=== PATIENT | female | born 1990 | race Caucasian/White ===

== ENCOUNTER → 2022-03-22 16:47 | Outpatient (REF) | payer OTHER, SELFPAY ==
--- NOTE | 2022-03-22 16:57 | CA_ITS ---
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 The calculated ejection fraction is 58% by biplane method. - No obvious valvular pathology seen on this study. Findings Left Ventricle Normal left ventricular cavity size. There is normal left ventricular wall thickness. The left ventricular systolic function is normal. The calculated ejection fraction is 58% by biplane method. There is no evidence of regional wall motion abnormalities. Diastolic function is normal for age. Right Ventricle Normal right ventricular cavity size and systolic function. Atria Both atria are normal in size. Aortic Valve There is a normal trileaflet aortic valve. There is no aortic valve stenosis. There is no aortic valve regurgitation. Mitral Valve The mitral valve appears normal. There is no mitral valve regurgitation. There is no mitral valve stenosis. Pulmonic Valve The pulmonic valve is likely normal. Tricuspid Valve There is trace tricuspid valve regurgitation. The pulmonary artery systolic pressure is normal. Great Vessels The asc aorta and aortic arch are normal in size. Venous The inferior vena cava is normal in size and collapses greater than 50% with inspiration. Pericardium/Pleural There is no evidence of pericardial effusion. Prior Study Comparison No prior study available for comparison. Recommendations, Care & Conclusions No obvious valvular pathology seen on this study. Measurements 2D Linear Measurements IVSd: 0.65 0.6-0.9/0.6-1.0 cm LVIDd: 5.39 3.9-5.3/4.2-5.9 cm LVIDd Index: 3.08 2.4-3.2/2.2-3.1 cm/m2 LVIDs: 3.72 2.0-3.6 cm LVPWd: 0.63 0.7-1.1 cm LA Diam: 2.80 2.7-3.8/3.0-4.0 cm LAIDs Index: 1.60 1.5-2.3 cm/m2 LV Mass: 145.76 67-162/88-224 g LV Mass Index: 83.29 43-95/49-115 g/m2 LVOT Diam: 2.10 3.0+(-)1.3 cm 2D Systolic Function EF 4C: 53.20 >55% EF 2C: 61.40 >55% EF BiP: 58.00 >55% Mitral Valve MV Pk E: 0.84 MV PK A: 0.49 MV Decel Time: 182.00 E/A: 1.70 E'Lateral: 14.40 E'Medial: 9.79 E/E' Med: 8.50 E/E' Lat: 5.80 PHT: 53.00 MVA PHT: 4.15 Decel [place]: 4.59 Aortic Valve AoV Pk Mikal: 1.31 AoV Mn Mikal: 0.84 AoV VTI: 0.28 AoV Pk Grad: 7.00 Aov Mn Grad: 3.00 JEREMIAH Cont.VTI: 2.38 LVOT LVOT Pk Mikal: 0.93 LVOT Mn Mikal: 0.61 LVOT VTI: 0.19 LVOT Pk Grad: 3.00 LVOT Mn Grad: 2.00 LVOT Diam: 2.10 LVOT Area: 3.46 Diastolic Function MV Pk E: 0.84 MV Pk A: 0.49 E/A: 1.70 E'Medial: 9.79 E/E' Med: 8.50 E' Laterial: 14.40 E/E' Lat: 5.80 Right Ventricle TAPSE (mm): 23.90 TVS' Mikal: 12.30 Tricuspid Valve TR Pk Mikal: 1.86 TR Pk Grad: 14.00 RA Press: 3.00 RVSP: 17.00 Great Vessels Aorta Sinus of Valsalva: 3.01 2.0-3.5 cm Ao Asc: 2.80 2.1-3.4 cm Ao Arch: 2.50 Updated in Other Vendor System with Status of Final Joe Lee MD electronically signed on 03/24/2022 2:11:58 PM with status of Final
== END ==
LOC: HO.CARD 16:47
PROVIDERS: Visit Provider Internal Medicine
DX: R01.1 Cardiac murmur, unspecified (principal)
CPT/HCPCS: 93306